=== PATIENT | female | born 1975 | race American Indian/Alaskan Native ===

== ENCOUNTER 2018-04-19 17:55 | Observation (INO) | payer MEDICAID ==
--- NOTE | 2018-04-19 18:17 | ED PDOC ---
Arrival/HPI - General Time Seen by Provider: 04/19/18 18:03 Historian: Patient - History of Present Illness Narrative History of Present Illness (Text): 04/19/18 18:10 42 year old female, with past medical history of diabetes, hypertension and hyperlipidemia, presents to the Emergency department complaining of 1 day history of midsternal chest pain. Patient denies unchanged symptoms with no exacerbation or alleviation since onset. Patient denies associated shortness of breath, cough, neck pain or back pain. 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 Patient was subsequently referred for cardiac cath but was denied by her insurance. Patient denies any fevers, chills, headache, dizziness, dyspnea on exertion, cough, abdominal pain , nausea, vomiting, diarrhea, or any other complaints. Time/Duration: 24 hours Symptom Onset: Gradual Symptom Course: Unchanged Quality: Aching Activities at Onset: Light Context: Home Past Medical History - Provider Review Nursing Documentation Reviewed: Yes - Infectious Disease Hx of Infectious Diseases: None - Tetanus Immunization Tetanus Immunization: Unknown - Cardiac Hx Pacemaker: No - Neurological Hx Paralysis: No - Endocrine/Metabolic Hx Diabetes Mellitus Type 1: Yes - Hematological/Oncological Hx Blood Transfusions: No Hx Blood Transfusion Reaction: No - Musculoskeletal/Rheumatological Hx Musculoskeletal Disorders: No - Gastrointestinal Hx Gastritis: Yes - Psychiatric Hx Substance Use: No - Surgical History Other/Comment: Cardiac stent in 2012 - Anesthesia Hx Anesthesia Reactions: No Hx Malignant Hyperthermia: No - Suicidal Assessment Feels Threatened In Home Enviroment: No Family/Social History - Physician Review Nursing Documentation Reviewed: Yes Family/Social History: No Known Family HX Smoking Status: Never Smoked Hx Alcohol Use: No (SOCIALLY) Hx Substance Use: No Hx Substance Use Treatment: No Allergies/Home Meds Allergies/Adverse Reactions: Allergies EGG Allergy (Intermediate, Verified 01/18/17 20:58) RASH Home Medications: Home Meds Medication Instructions Recorded Confirmed Aspirin [Aspirin Chewable] 81 mg PO DAILY 07/01/16 01/25/17 Cholecalciferol [Vitamin D 1000 IU] 2,000 iu PO DAILY 07/01/16 01/25/17 Insulin Glargine, Recombina 30 unit SC HS 07/01/16 01/25/17 [Lantus] Liraglutide [Victoza 2-Dom] 1.6 mg SQ QAM 07/01/16 01/25/17 Lisinopril [Zestril] 5 mg PO QPM 07/01/16 01/25/17 Lovastatin [Altoprev] 20 mg PO DAILY 07/01/16 01/25/17 Omeprazole 40 mg PO DAILY 07/24/16 01/25/17 Review of Systems - Physician Review All systems were reviewed & negative as marked: Yes - Review of Systems Constitutional: absent: Fevers Respiratory: absent: SOB, Cough Cardiovascular: Chest Pain. absent: HIDALGO Gastrointestinal: absent: Abdominal Pain, Diarrhea, Nausea, Vomiting Musculoskeletal: absent: Back Pain, Neck Pain Neurological: absent: Headache, Dizziness Physical Exam Vital Signs Reviewed: Yes Vital Signs Temp Pulse Resp BP Pulse Ox 04/19/18 17:55 98.4 F 77 18 117/83 96 Temperature: Afebrile Blood Pressure: Normal Pulse: Regular Respiratory Rate: Normal Appearance: Positive for: Well-Appearing, Non-Toxic, Comfortable Pain Distress: None Mental Status: Positive for: Alert and Oriented X 3 - Systems Exam Head: Present: Atraumatic, Normocephalic Pupils: Present: PERRL Extroacular Muscles: Present: EOMI Conjunctiva: Present: Normal Mouth: Present: Moist Mucous Membranes Neck: Present: Normal Range of Motion Respiratory/Chest: Present: Clear to Auscultation, Good Air Exchange. No: Respiratory Distress, Accessory Muscle Use Cardiovascular: Present: Regular Rate and Rhythm, Normal S1, S2. No: Murmurs Abdomen: No: Tenderness, Distention, Peritoneal Signs Back: Present: Normal Inspection Upper Extremity: Present: Normal Inspection. No: Cyanosis, Edema Lower Extremity: Present: Normal Inspection. No: Edema Neurological: Present: GCS=15, CN II-XII Intact, Speech Normal Skin: Present: Warm, Dry, Normal Color. No: Rashes Psychiatric: Present: Alert, Oriented x 3, Normal Insight, Normal Concentration Medical Decision Making ED Course and Treatment: 04/19/18 18:05 Impression: 42 year old female presents to the Emergency department complaining of midsternal chest pain. Plan: -- EKG -- Labs -- Chest X-ray -- Aspirin -- Reassess and disposition Prior Visits: Notes and results from previous visits were reviewed. Progress Notes: 04/19/18 18:05 EKG: Ordered, reviewed, and independently interpreted the EKG. Rate : 73 BPM Rhythm : NSR Interpretation : Sinus rhythm with lvh Comparison : No acute St changes from EKG performed on 11/05/2014. 04/19/18 20:[address] Estevez, covering for Dr. Chaves, who is aware and agrees with Emergency department management plan to admit patient to the hospital to perform stress test in the morning for further evaluation. - Lab Interpretations Lab Results: 04/19/18 19:00 04/19/18 19:00 Lab Results 04/19/18 19:00: Sodium 137, Potassium 4.1, Chloride 99, Carbon Dioxide 28, Anion Gap 14, BUN 10, Creatinine 0.8, Est GFR ( Amer) > 60, Est GFR (Non- Af Amer) > 60, Random Glucose 205 H, Calcium 9.5, Total Bilirubin 0.4, AST 21, ALT 31, Alkaline Phosphatase 56, Total Creatine Kinase 157, Troponin I < 0.01, NT-Pro-B Natriuret Pep < 11.1, Total Protein 7.3, Albumin 4.4, Globulin 2.9, Albumin/Globulin Ratio 1.5 04/19/18 19:00: PT 10.9, INR 0.96, APTT 32.8 04/19/18 19:00: WBC 6.8, RBC 4.60, Hgb 13.3, Hct 38.3, MCV 83.3, MCH 28.9, MCHC 34.7, RDW 12.9, Plt Count 184, MPV 10.2, Gran % 40.0 L, Lymph % (Auto) 53.8 H, Loving % (Auto) 5.0, Eos % (Auto) 1.2 L, Baso % (Auto) 0.0, Gran # 2.73, Lymph # ( Auto) 3.7 H, Loving # (Auto) 0.3, Eos # (Auto) 0.1, Baso # (Auto) 0.00 - RAD Interpretation Radiology Orders: 04/19/18 18:06 CHEST PORTABLE [RAD] Stat - Medication Orders Current Medication Orders: Discontinued Medications Aspirin (Aspirin Chewable) 324 mg PO STAT STA Stop: 04/19/18 18:07 Last Admin: 04/19/18 18:43 Dose: 243 mg Comments: pt took 81 mg this am ok as per ER MD. - Scribe Statement The provider has reviewed the documentation as recorded by the Abhishekibmedina Petty. All medical record entries made by the Umu were at my direction and personally dictated by me. I have reviewed the chart and agree that the record accurately reflects my personal performance of the history, physical exam, medical decision making, and the department course for this patient. I have also personally directed, reviewed, and agree with the discharge instructions and disposition. Disposition/Present on Arrival - Present on Arrival Any Indicators Present on Arrival: No History of DVT/PE: No History of Uncontrolled Diabetes: No Urinary Catheter: No History Surgical Site Infection Following: None - Disposition Have Diagnosis and Disposition been Completed?: Yes Diagnosis: Chest pain Disposition: HOSPITALIZED Disposition Time: 20:05 Patient Plan: Observation Condition: FAIR Discharge Instructions (ExitCare): Chest Pain (ED)
--- NOTE | 2018-04-19 18:45 | RAD ---
Date of service: 04/19/2018 HISTORY: Chest pain. COMPARISON: No prior. FINDINGS: LUNGS: No active pulmonary disease. PLEURA: No significant pleural effusion identified, no pneumothorax apparent. CARDIOVASCULAR: Normal. OSSEOUS STRUCTURES: No significant abnormalities. VISUALIZED UPPER ABDOMEN: Normal. OTHER FINDINGS: None. IMPRESSION: No active disease.
[2018-04-19 19:20] LABS: EOS # 0.1 (0.0-0.7); EOS % 1.2 % (1.5-5.0); GRAN # 2.73 (1.4-6.5); HEMOGLOBIN 13.3 g/dL (12.0-16.0); LYMPH # 3.7 (1.2-3.4); LYMPH % 53.8 % (22.0-35.0); MEAN CELL VOLUME 83.3 fl (80.0-105.0); MEAN CORPUSCULAR HEMOGLOBIN 28.9 pg (25.0-35.0); MEAN CORPUSCULAR HGB CONC 34.7 g/dl (31.0-37.0); MEAN PLATELET VOLUME 10.2 fl (7.0-11.0); MONO # 0.3 (0.1-0.6); RBC 4.6 10^6/uL (3.5-6.1); RED CELL DISTRIBUTION WIDTH 12.9 % (11.5-14.5); WHITE BLOOD COUNT 6.8 10^3/ul (4.5-11.0)
[2018-04-19 19:29] LABS: INR 0.96; PARTIAL THROMBOPLASTIN TIME 32.8 Seconds (25.1-36.5); PROTHROMBIN TIME 10.9 SECONDS (9.4-12.5)
[2018-04-19 19:30] LABS: ALB/GLOB RATIO 1.5 (1.1-1.8); ALBUMIN 4.4 g/dL (3.0-4.8); ALT/SGPT 31 U/L (7-56); AST/SGOT 21 U/L (14-36); BLOOD UREA NITROGEN 10 mg/dL (7-21); CALCIUM 9.5 mg/dL (8.4-10.5); GFR NON-AFRICAN AMERICAN > 60
[2018-04-19 19:41] LABS: TROPONIN I < 0.01 ng/mL
[2018-04-19 19:47] LABS: B-TYPE NATRIURETIC PEPTIDE < 11.1 pg/mL (0-450)
[2018-04-19 20:47] LABS: HDL CHOLESTEROL 43 mg/dL (29-60)
[2018-04-19 20:58] LABS: LDL CHOLESTEROL 92 mg/dL (0-129)
--- NOTE | 2018-04-19 21:06 | CP.PCM.HP ---
History of Present Illness - History of Present Illness History of Present Illness: Khang Dominguez DO PGy-1, H&P for hospitalist CC: chest pain This is a 42 year old AA female with PMH of IDDM, HTN, dyslipidemia who presents to the ED with complaints of intermittent chest pain for the past day. Pt describes the pain as a sharp, midsternal, 8/10 chest pain that lasts a few seconds, coming and going without inciting or alleviating factors, non- radiating. She also reports intermittent shortness of breath, which lasts a few seconds and comes on with the chest pain, and goes away with the chest pain. She does not have SOB with every episode of chest pain. Pt reports one frontal headache at 1 pm today which lasted two hours, went away after taking Tylenol, was nonradiating. She denies visual complaints, paresthesias, weakness, fever, chills, abdominal pain, n/v/d, gerd symptoms, trauma, hormonal therapy, clots in the past, recent travel or prolonged immobility. Pt was seen and evaluated in the ED. Pt is resting comfortably, and does not endorse chest pain on arrival to the ED or at this time. A 12-point ROS was reviewed and is otherwise unremarkable. 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 SPECT stress test (11/2016) which was normal; fixed anterior wall defect due to breast attenuation. PSH: Tubal ligation 11 years ago, left foot bunionectomy, tonsillectomy at age 35 due to sleep apnea FHx: Mother (alive) with DM2, hypercholesterolemia, no history of CAD. Father ( alive) no medical problems. 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 Denies smoking history. Etoh socially. Denies history illicit drug use. Meds: Lovastatin 40 mg PO QD, ASA 81 mg QHS, Lisinopril 5 mg PO QD, Lantus 35 mg QHS, Vitamin D D QD, Victoza 1.6 mg SQ QAM Fish: NKDA, Eggs Present on Admission - Present on Admission Any Indicators Present on Admission: No Review of Systems - Review of Systems All systems: reviewed and no additional remarkable complaints except (as per HPI ) Past Patient History - Infectious Disease Hx of Infectious Diseases: None - Tetanus Immunizations Tetanus Immunization: Unknown - Past Social History Smoking Status: Never Smoked - CARDIAC Hx Pacemaker: No - NEUROLOGICAL Hx Paralysis: No - ENDOCRINE/METABOLIC Hx Diabetes Mellitus Type 1: Yes - HEMATOLOGICAL/ONCOLOGICAL Hx Blood Transfusions: No Hx Blood Transfusion Reaction: No - MUSCULOSKELETAL/RHEUMATOLOGICAL Hx Musculoskeletal Disorders: No - GASTROINTESTINAL Hx Gastritis: Yes - PSYCHIATRIC Hx Substance Use: No - SURGICAL HISTORY Other/Comment: Cardiac stent in 2012 - ANESTHESIA Hx Anesthesia Reactions: No Hx Malignant Hyperthermia: No Meds Allergies/Adverse Reactions: Allergies Allergy/AdvReac Type Severity Reaction Status Date / Time EGG Allergy Intermediate RASH Verified 01/18/17 20:58 Physical Exam - Constitutional Appears: Well, No Acute Distress - Head Exam Head Exam: ATRAUMATIC, NORMAL INSPECTION, NORMOCEPHALIC - Eye Exam Eye Exam: Conjunctival injection (in the left eye), EOMI, Normal appearance, PERRL - ENT Exam ENT Exam: Mucous Membranes Moist - Neck Exam Neck exam: Positive for: Normal Inspection Additional comments: (-) JVD - Respiratory Exam Respiratory Exam: Clear to Auscultation Bilateral, NORMAL BREATHING PATTERN. absent: Rhonchi, Wheezes, Respiratory Distress - Cardiovascular Exam Cardiovascular Exam: REGULAR RHYTHM, +S1, +S2. absent: Diastolic murmur, Systolic Murmur Additional comments: 2+ radial pulses bilaterally - GI/Abdominal Exam GI & Abdominal Exam: Normal Bowel Sounds, Soft. absent: Mass, Organomegaly, Pulsatile Mass, Tenderness - Extremities Exam Extremities exam: Positive for: normal inspection, pedal edema, pedal pulses present (3+) - Back Exam Back exam: NORMAL INSPECTION - Neurological Exam Neurological exam: Alert, Oriented x3 - Psychiatric Exam Psychiatric exam: Normal Affect, Normal Mood - Skin Skin Exam: Dry, Normal Color, Warm Results - Vital Signs Recent Vital Signs: Last Vital Signs Temp 98.4 F 04/19/18 20:29 Pulse 81 04/19/18 20:29 Resp 18 04/19/18 20:29 BP 131/74 04/19/18 20:29 Pulse Ox 100 04/19/18 20:29 - Labs Result Diagrams: 04/19/18 19:00 04/19/18 19:00 Assessment & Plan - Assessment and Plan (Free Text) Assessment: This is a 42 year old AA female with PMH of IDDM, HTN, dyslipidemia who presents to the ED with complaints of intermittent chest pain for the past day, associated with SOB at time. In the ED, pt received ASA 325 mg PO. EKG shows NSR at 73, no acute STTW changes; as read by me. CXR read as NAD. Troponin was negative x1. Plan: Atypical chest pain in a diabetic female, r/o ACS - Echo (2014) shows normal chamber size, EF 55-60%, Trace AR/PI, Trace to mild MR/TR RVSP-30 mmHg. - initial troponin is <0.01, trend x2 Q6H - EKG shows NSR at 73, no STTW changes - CXR is read as NAD - ASA 81 mg PO QD - Of note, pt was had episode of CP as described in HPI prior to being moved to the floor. Repeat EKG is NSR no acute STTW changes. - Given cardiac cath (2011) which notes normal coronaries/LVEDP possible vasospastic cause of CP, will give 1 dose of Amlodipine 5 mg PO now - cardiology consulted, recs appreciated Diabetes, insulin-dependant - f/u Hgb A1c - accucheck ACHS - levemir 15 units ACBHS - continue home victoza at 1.6 mg SC QAM Hypertension - lisinopril 5 mg PO QD Dyslipidemia -f/u lipid panel -Atorvastatin 10 mg PO QHS History Vitamin D Deficiency - Vitamin D 2,000 IU PO QD - f/u vitamin D 25 OH PPX/diet - Protonix for GI ppx, SCDs for DVT ppx, pt is ambulatory - HHD, NPO past midnight Case was reviewed and discussed with attending physician, Dr. Chaitanya Hargrove
[2018-04-19] MEDS: Insulin Detemir 100 units/ml Vial (Levemir) SC SCH (23:00)
[2018-04-20] MEDS ORDERED: Dextrose 50% SYRINGE Inj (50 ml) IV PRN (02:53)
[2018-04-20] MEDS ORDERED: Insulin Lispro (humaLOG) LOW Coverage SC SCH (03:00)
[2018-04-20 05:01] VITALS: BMI 19.5
[2018-04-20 05:46] VITALS: O2SAT 100
[2018-04-20] MEDS: Insulin Detemir 100 units/ml Vial (Levemir) SC SCH (07:32)
[2018-04-20] MEDS: Insulin Lispro (humaLOG) LOW Coverage SC SCH ×3 (07:32→20:19)
[2018-04-20] MEDS ORDERED: LIRAGLUTIDE 1.6 MG SQ SCH (10:00)
[2018-04-20] MEDS ORDERED: Cholecalciferol 1,000 INTLU TAB PO SCH (10:00)
[2018-04-20 10:23] LABS: BASO # 0.01 K/mm3 (0.0-2.0); BASO % 0.2 % (0.0-3.0); EOS # 0.1 (0.0-0.7); EOS % 1.3 % (1.5-5.0); GRAN # 2.17 (1.4-6.5); GRAN % 40.3 % (50.0-68.0); HEMOGLOBIN 13.5 g/dL (12.0-16.0); LYMPH # 2.8 (1.2-3.4); LYMPH % 52.4 % (22.0-35.0); MEAN CELL VOLUME 84.1 fl (80.0-105.0); MEAN CORPUSCULAR HEMOGLOBIN 29.1 pg (25.0-35.0); MEAN CORPUSCULAR HGB CONC 34.6 g/dl (31.0-37.0); MEAN PLATELET VOLUME 10.5 fl (7.0-11.0); MONO # 0.3 (0.1-0.6); MONO % 5.8 % (1.0-6.0); RBC 4.64 10^6/uL (3.5-6.1); RED CELL DISTRIBUTION WIDTH 12.9 % (11.5-14.5); WHITE BLOOD COUNT 5.4 10^3/ul (4.5-11.0)
[2018-04-20 10:56] LABS: ALB/GLOB RATIO 1.3 (1.1-1.8); ALT/SGPT 27 U/L (7-56); AST/SGOT 29 U/L (14-36); BLOOD UREA NITROGEN 10 mg/dL (7-21); CALCIUM 9.1 mg/dL (8.4-10.5); GFR NON-AFRICAN AMERICAN > 60
[2018-04-20] MEDS ORDERED: Lidocaine PF 2% (5 ml) Inj (For Cardiac Arrhy) ONE (13:37)
[2018-04-20] MEDS ORDERED: Iohexol 350mgl/ml 50 ML ONE (13:38)
[2018-04-20] MEDS ORDERED: Iodixanol 320 MG/ML 200 ML BOTTLE IV ONE (13:38)
[2018-04-20] MEDS ORDERED: Iodixanol 320 MG/ML 100 ML BOTTLE IV ONE (13:38)
[2018-04-20] MEDS ORDERED: Nitroglycerin 50mg in D5W 0 MG/0 ML BOTTLE IV ONE (13:39)
--- NOTE | 2018-04-20 13:49 | CP.PCM.PN ---
Subjective - Date & Time of Evaluation Date of Evaluation: 04/20/18 Time of Evaluation: 06:14 - Subjective Subjective: Enrique Klein DO PGY-1, Internal Medicine Resident. Hospitalist Progress Note Objective - Vital Signs/Intake and Output Vital Signs (last 24 hours): Temp Pulse Resp BP Pulse Ox 98.7 F 78 18 135/86 100 04/20/18 12:00 04/20/18 12:00 04/20/18 12:00 04/20/18 12:00 04/20/18 05:46 Intake and Output: 04/20/18 04/20/18 06:59 18:59 Intake Total 240 Balance 240 - Medications Medications: Current Medications Aspirin (Aspirin Chewable) 81 mg PO DAILY [facility] Last Admin: 04/20/18 11:24 Dose: 81 mg Atorvastatin Calcium (Lipitor) 10 mg PO DIN TONY Cholecalciferol (Vitamin D) 2,000 intlu PO DAILY [facility] Last Admin: 04/20/18 11:25 Dose: 2,000 intlu Dextrose (Dextrose 50% Inj) 0 ml IV STAT PRN; Protocol PRN Reason: Hypoglycemia Protocol Dextrose (Dextrose 5% In Water 1000 Ml) 1,000 mls @ 0 mls/hr IV .Q0M PRN; Protocol; Per Protocol PRN Reason: Hypoglycemia Protocol Insulin Detemir (Levemir) 15 unit SC ACBHS [facility] Last Admin: 04/20/18 07:32 Dose: Not Given Insulin Human Lispro (Humalog Low) 0 units SC Q6H [facility] PRN Reason: Protocol Last Admin: 04/20/18 12:21 Dose: 4 unit Lisinopril (Zestril) 5 mg PO QPM [facility] Non-Formulary Medication (Liraglutide [Victoza 2-Dom]) 1.6 mg SQ QAM [facility] Last Admin: 04/20/18 11:25 Dose: Not Given - Labs Labs: 04/20/18 10:19 04/20/18 10:19 PT 10.9 SECONDS (9.4-12.5) 04/19/18 19:00 INR 0.96 04/19/18 19:00 APTT 32.8 Seconds (25.1-36.5) 04/19/18 19:00 Assessment and Plan - Assessment and Plan (Free Text) Assessment: 42 y/o female with PMH of IDDM, HTN, dyslipidemia who presents to the ED with chest pain, SOB x1 day . EKG shows NSR at 73, no acute changes, CXR no acute finding. Troponin negative x1. ASA 325 given. 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 f/u results DM- type 1 - Not controlled - levemir 15 units - continue home victoza at 1.6 mg SC QAM - Hgb A1c 8.7 - accucheck ACHS - ISS- low Hypertension - lisinopril 5 mg PO QD Dyslipidemia -lipid panel CHOL 163, TG 147, LDL 92 -continue Atorvastatin Vitamin D Deficiency - continue Vitamin D 2000 Prophylaxis - Protonix for GI ppx - SCDs for DVT ppx -Heat healthy diet Case reviewed and discussed with attending Dr Higgins
[2018-04-20] MEDS ORDERED: Verapamil 2 ML ONE (14:35)
[2018-04-20] MEDS ORDERED: Midazolam 2 MG/2 ML VIAL ONE ×2 (15:00→15:15)
[2018-04-20] MEDS ORDERED: Phenylephrine 10 mg/ml Inj ONE (15:12)
[2018-04-20] MEDS ORDERED: Bacitracin 500 Units/gm Oint Foilpak UD TOP ONE (15:39)
[2018-04-20] MEDS ORDERED: Sodium Chloride 0.9% 1,000 ML IV SCH (15:45)
--- NOTE | 2018-04-20 16:20 | CARD ---
APPROVED REPORT Date of service: 04/20/2018 Protocol: MARLO Test Type: Sestamibi Stress Test Attending Physician: Dr. David Estevez Referring Physician: Dr. Adrian Lux Test Indications: Chest Pain Height:5 ft 0 in Weight:161lbs Medications: Levemir, Humulog,Lisinipril, Amlodipine, Aspirin, Atorvastatin, Vit. D. Medical History: 42 y/o female. Hx of diabetes, hypertension,high cholesterol. Target HR: 178 bpm Resting ECG: normal Resting Heart Rate: 92 bpm Resting Blood Pressure: 100/80mmHg Submaximum (85%): 151 bpm POST EXERCISE Reason for Termination: Fatigue Target HR: No Max HR: 155 bpm 88% of Maximum Predicted HR: 178 bpm Exercise duration: 08:30 min:sec, 3 Stage Exercise capacity: 10.1METs Max Blood Pressure: 130/80mmHg Blood Pressure response to exercise: normal resting BP - appropriate response Heart Rate response to exercise: appropriate Chest Pain: Yes, sharp like needele in chest Angina index: 0 Arrhythmia: No, none ST Change: Yes, Depression downsloping 1/2 to 1 mm in II,III, Avf and V5-6 Deviation: 0 mm TEST SUMMARY [id number]/.0. [id number]/80.0. PRETESTHYPERV.00:[id number]/80.0. PRETESTWARM-UP04:[id number]/.0. EXERCISESTAGE 103:[id number]/80.0. EXERCISESTAGE 203:[id number]/80.0. EXERCISESTAGE 302:[id number]/80.0. [id number]/80.0. INTERPRETATION Stress EKG Conclusion: Borderline positive for Ischemia, sharp pain in chest like needle, Nuclear scan to follow. Signed by David Estevez Electronically Approved: 04/20/2018 09:15:38 EXAM: Myocardial Perfusion STRESS/REST Stress Test Type: Exercise Treadmill Imaging Protocol Rest Spect myocardial perfusion imaging was performed in supine position 60 minutes following the injection of 30.2 mCi of Tc-99 Myoview. At peak stress, the patient was injected intravenously with 10.9mCi of Tc-99 tetrofosmin after an exercise time of 8 minutes and 30 seconds. Gated Stress Spect was performed 65 minutes after intravenous Tc-99 Myoview injection. The images were gated to evaluate regional wall motion and calculate ventricular ejection fraction.Images were reconstructed using backfilter projection method in short horizontal and verticle long axis. Spect slices were generated. LV Perfusion The quality of the study is good. The left ventricle is normal in size. The right ventricle is unremarkable. The lung uptake is within normal limits. The distribution of tracer reveals a small area of mildly to moderately decreased perfusion in the distal anteroseptal /apical anna on the stress study. The remainder of the LV myocardium is unremarkable. The rest myocardial perfusion study shows improvement of the defect. Wall Motion Wall motion study shows good contractility of the left ventricle. LVEF = 71%. Conclusion 1. Probably bnormal SPECT myocardial perfusion study. 2. Reversible, snakkm distal anteroseptal / apical defects suspicious of ischemia. However, the effect of changing breast position cannot be excluded. 3. Normal gated wall motion of the left ventricle. 4. In comparison with the last study of 11/28/2016, the changes appear new.
--- NOTE | 2018-04-20 17:36 | CPOSTOP ---
DATE: 04/20/2018 CARDIOVASCULAR LAB POSTPROCEDURE NOTE DICTATING PHYSICIAN: David Estevez MD. PROFESSIONAL SOCCER PLAYER: Jeferson Bashir, geothermal field technician. TYPE OF ANESTHESIA: Moderate conscious sedation. TOTAL DOSE GIVEN: 2 mg of Versed, 100 mcg of fentanyl given. PRE-PROCEDURE DIAGNOSES: Unstable angina, acute coronary syndrome, abnormal stress test. PROCEDURE PERFORMED: Left heart catheterization, left radial approach. FINDINGS: Essentially normal coronaries. FINAL DIAGNOSIS: Normal coronaries. POST-PROCEDURE CONDITION: Stable. CLOSURE DEVICE: TR band. VASCULAR ACCESS SITE: Left radial artery. TOTAL RADIATION DOSE: 2088.9 milligray unit. TOTAL FLUOROSCOPY TIME: 1.4 minutes. Dvaid Estevez MD
--- NOTE | 2018-04-20 17:40 | CARD ---
APPROVED REPORT Date of service: 04/19/2018 EKG Measurement Heart [id number] [id number] <Conclusion> Normal sinus rhythm Normal ECG
--- NOTE | 2018-04-20 17:41 | CARD ---
APPROVED REPORT Date of service: 04/19/2018 EKG Measurement Heart [id number] <Conclusion> Normal sinus rhythm Minimal voltage criteria for LVH, may be normal variant Nonspecific ST and T wave abnormality Abnormal ECG
[2018-04-20 18:38] VITALS: RESP 21; TEMP 98.9
--- NOTE | 2018-04-20 19:02 | CARD ---
APPROVED REPORT Date of service: 04/20/2018 EXAM: Two-dimensional and M-mode echocardiogram with Doppler and color Doppler. INDICATION Chest Pain 2D DIMENSIONS Left Atrium (2D)3.8 (1.6-4.0cm)IVSd1.0 (0.7-1.1cm) LVDd3.8 (3.9-5.9cm)PWd1.0 (0.7-1.1cm) LVDs2.4 (2.5-4.0cm)FS (%) 36.1 % LVEF (%)66.5 (>50%) M-Mode DIMENSIONS Aortic Root2.40 (2.2-3.7cm)Aortic Cusp Exc.1.50 (1.5-2.0cm) Aortic Valve AoV Peak Hmwcoapm759.0cm/Rehan Peak GR.5mmHg Mitral Valve E/A ratio0.0 TDI E/Lateral E'0.0E/Medial E'0.0 Tricuspid Valve TR Peak [id number]/sRAP [id number] Peak Gr.8mmHg [id number] LEFT VENTRICLE The left ventricle is normal size. There is normal left ventricular wall thickness. The left ventricular function is normal. The left ventricular ejection fraction is within the normal range. There is normal LV segmental wall motion. The left ventricular diastolic function is normal. No left ventricle thrombus noted on this study. There is no ventricular septal defect visualized. There is no left ventricular aneurysm. There is no mass noted in the left ventricle. RIGHT VENTRICLE The right ventricle is normal size. There is normal right ventricular wall thickness. The right ventricular systolic function is normal. ATRIA The left atrium size is normal. The right atrium size is normal. The interatrial septum is intact with no evidence for an atrial septal defect. AORTIC VALVE The aortic valve is thickened but opens well. No aortic regurgitation is present. There is no aortic valvular stenosis. There is no aortic valvular vegetation. MITRAL VALVE The mitral valve is thickened but opens well. Mitral regurgitation is trace. There is no mitral valve stenosis. There is no evidence of mitral valve prolapse. TRICUSPID VALVE The tricuspid valve leaflets are thickened , but open well. There is trace tricuspid regurgitation. There is no tricuspid valve stenosis. There is no tricuspid valve prolapse or vegetation. PULMONIC VALVE The pulmonary valve is normal in structure. There is no pulmonic valvular stenosis. GREAT VESSELS The aortic root is normal in size. The ascending aorta is normal in size. The pulmonary artery is normal. The IVC is normal in size and collapses >50% with inspiration. PERICARDIAL EFFUSION There is no pleural effusion. There is no pericardial effusion. <Conclusion> Normal Chamber size.EF-65%. TracebMR/TR RVSP-18 mmof hg.
--- NOTE | 2018-04-20 19:19 | CP.PCM.DIS ---
Provider - Provider Date of Admission: 04/19/18 20:06 Attending physician: Danielle Higgins MD Consults: cardiology Time Spent in preparation of Discharge (in minutes): 45 Hospital Course - Lab Results Lab Results: Most Recent Lab Values WBC 5.4 10^3/ul (4.5-11.0) D 04/20/18 10:19 RBC 4.64 10^6/uL (3.5-6.1) 04/20/18 10:19 Hgb 13.5 g/dL (12.0-16.0) 04/20/18 10:19 Hct 39.0 % (36.0-48.0) 04/20/18 10:19 MCV 84.1 fl (80.0-105.0) 04/20/18 10:19 MCH 29.1 pg (25.0-35.0) 04/20/18 10:19 MCHC 34.6 g/dl (31.0-37.0) 04/20/18 10:19 RDW 12.9 % (11.5-14.5) 04/20/18 10:19 Plt Count 176 10^3/uL (120.0-450.0) 04/20/18 10:19 MPV 10.5 fl (7.0-11.0) 04/20/18 10:19 Gran % 40.3 % (50.0-68.0) L 04/20/18 10:19 Lymph % (Auto) 52.4 % (22.0-35.0) H 04/20/18 10:19 [place] % (Auto) 5.8 % (1.0-6.0) 04/20/18 10:19 Eos % (Auto) 1.3 % (1.5-5.0) L 04/20/18 10:19 Baso % (Auto) 0.2 % (0.0-3.0) 04/20/18 10:19 Gran # 2.17 (1.4-6.5) 04/20/18 10:19 Lymph # (Auto) 2.8 (1.2-3.4) 04/20/18 10:19 [place] # (Auto) 0.3 (0.1-0.6) 04/20/18 10:19 Eos # (Auto) 0.1 (0.0-0.7) 04/20/18 10:19 Baso # (Auto) 0.01 K/mm3 (0.0-2.0) 04/20/18 10:19 PT 10.9 SECONDS (9.4-12.5) 04/19/18 19:00 INR 0.96 04/19/18 19:00 APTT 32.8 Seconds (25.1-36.5) 04/19/18 19:00 Sodium 136 mmol/L (132-148) 04/20/18 10:19 Potassium 4.1 mmol/L (3.6-5.0) 04/20/18 10:19 Chloride 102 mmol/L (98-107) 04/20/18 10:19 Carbon Dioxide 25 mmol/L (21-33) 04/20/18 10:19 Anion Gap 14 (10-20) 04/20/18 10:19 BUN 10 mg/dL (7-21) 04/20/18 10:19 Creatinine 0.8 mg/dl (0.7-1.2) 04/20/18 10:19 Est GFR ( Amer) > 60 04/20/18 10:19 Est GFR (Non-Af Amer) > 60 04/20/18 10:19 POC Glucose (mg/dL) 339 mg/dL (65-110) H 04/20/18 11:34 Random Glucose 185 mg/dL (70-110) H 04/20/18 10:19 Hemoglobin A1c 8.7 % (4.2-6.5) H 04/19/18 19:00 Calcium 9.1 mg/dL (8.4-10.5) 04/20/18 10:19 Phosphorus 3.5 mg/dL (2.5-4.5) 04/20/18 10:19 Magnesium 1.9 mg/dL (1.7-2.2) 04/20/18 10:19 Total Bilirubin 0.4 mg/dL (0.2-1.3) 04/20/18 10:19 AST 29 U/L (14-36) 04/20/18 10:19 ALT 27 U/L (7-56) 04/20/18 10:19 Alkaline Phosphatase 58 U/L (38-126) 04/20/18 10:19 Total Creatine Kinase 157 U/L (35-230) 04/19/18 19:00 Troponin I < 0.01 ng/mL 04/20/18 07:00 NT-Pro-B Natriuret Pep < 11.1 pg/mL (0-450) 04/19/18 19:00 Total Protein 7.2 g/dL (5.8-8.3) 04/20/18 10:19 Albumin 4.0 g/dL (3.0-4.8) 04/20/18 10:19 Globulin 3.2 gm/dL 04/20/18 10:19 Albumin/Globulin Ratio 1.3 (1.1-1.8) 04/20/18 10:19 Triglycerides 147 mg/dL (35-160) 04/19/18 19:00 Cholesterol 163 mg/dL (130-200) 04/19/18 19:00 LDL Cholesterol Direct 92 mg/dL (0-129) 04/19/18 19:00 HDL Cholesterol 43 mg/dL (29-60) 04/19/18 19:00 25-OH Vitamin D Total 45.8 NG/ML (30.0-100.0) 04/20/18 07:00 TSH 3rd Generation 2.35 mIU/mL (0.46-4.68) 04/19/18 19:00 - Hospital Course Hospital Course: Hospital course: 42 year old AA female with PMH of IDDM, HTN, dyslipidemia who presents to the ED with complaints of intermittent chest pain for the past day, associated with SOB at time. Patient admitted to rule out ACS given that she had cardiac cath ( 2011) which noted normal coronaries/LVEDP and possible vasospastic cause of chest pain. She received ASA 325 mg PO. EKG shows NSR at 73, no acute ST-TW changes. CXR read as NAD. Serial Troponin was negative. Patient went for cardiac stress test during which she developed chest pain and was rushed to [facility]. No stents placed and the etiology was likely related to vacular spasm in the coronary arteries as per cardiology Dr Estevez. Patient was under observation after the cath procedure, no complications, surgical site clean and no signs of infections noted. Patient was medically optimized for discharge. On discharge: -Please follow up with your PMD within one week of discharge -Please resume your home meds as prescribed -please start taking Metoprolol 12.5mg twice daily -Please follow up with your construction trades contractor Dr Oliver within 2-3 weeks of discharge -Please go to the nearest emergency department if symptoms reoccur Discharge Exam - Head Exam Head Exam: ATRAUMATIC, NORMAL INSPECTION, NORMOCEPHALIC - Eye Exam Eye Exam: Normal appearance Pupil Exam: NORMAL ACCOMODATION - ENT Exam ENT Exam: Mucous Membranes Moist, Normal Exam - Neck Exam Neck exam: Full Rom, Normal Inspection - Respiratory Exam Respiratory Exam: Clear to PA & Lateral, NORMAL BREATHING PATTERN - Cardiovascular Exam Cardiovascular Exam: REGULAR RHYTHM, +S1, +S2 - GI/Abdominal Exam GI & Abdominal Exam: Normal Bowel Sounds, Soft - Rectal Exam Rectal Exam: NORMAL INSPECTION - Extremities Exam Extremities exam: normal capillary refill, pedal pulses present - Back Exam Back exam: FULL ROM - Neurological Exam Neurological exam: Alert, CN II-XII Intact, Normal Gait, Oriented x3, Reflexes Normal - Psychiatric Exam Psychiatric exam: Normal Affect, Normal Mood - Skin Skin Exam: Dry, Intact, Normal Color, Warm Discharge Plan - Discharge Medications Prescriptions: Metoprolol Succinate XL [Toprol XL] 12.5 mg PO BID #60 tab - Follow Up Plan Condition: FAIR Disposition: HOME/ ROUTINE Instructions: Coronary Heart Disease, Chest Pain Additional Instructions: -Please follow up with your PMD within one week of discharge -Please resume your home meds as prescribed -please start taking Metoprolol 12.5mg twice daily -Please follow up with your construction trades contractor Dr Oliver within 2-3 weeks of discharge -Please go to the nearest emergency department if symptoms reoccur
--- NOTE | 2018-04-20 19:42 | CARD ---
APPROVED REPORT Date of service: 04/20/2018 Procedure(s) performed: Left Heart Catheterization HISTORY The patient is a 42 year-old female with a history of : most recent EF: 72%. (EF Method: RADIONUCLIDE), diabetes mellitus with insulin treatment , previous diagnostic cath, previous PCI (The PCI date was 08/07/2012), hypertension , dyslipidemia , Admitted with Chest pain, during stress test developed Chest pain, nausea and Borderline Stress component positive for Ischemia.. INDICATION The indication(s) include : positive stress test, unstable angina . CASE TECHNIQUE The patient was brought urgently to the Cardiac Catheterization Laboratory in a fasting state and was prepped and draped in a sterile manner. The right femoral groin was infiltrated with 2% Lidocaine subcutaneous anesthesia. A 6FR GLIDESHEATH ACCESS KIT sheath was inserted into the right femoral artery without difficulty. Coronary angiography was performed using coronary diagnostic catheters. The left coronary system was accessed and visualized with a Diagnostic , 6F JL4 CATH DXT 100 CM catheter. The right coronary system was accessed and visualized with a Diagnostic ,6F JR 4 CATH DXT 100 CM catheter. The left ventricle was accessed and visualized with a 6F PIGTAIL 145 CATH DXT 110 CM catheter. Left ventricular/Aortic Valve gradient assessed on pullback. Left ventriculogram was performed in MAXWELL projection. Closure device was deployed with a Fr TR Band (Regular) without any complications. The patient tolerated the procedure well and there were no complications associated with the procedure. Vessel Analysis The patient's coronary anatomy is right dominant. The left main coronary artery is a medium size vessel . The left main bifurcates to the left anterior descending and circumflex. The left anterior descending artery is a medium size vessel with diffuse calcification noted throughout this vessel and without significant stenosis. There is a 55% stenosis in the very distal segment near apex and diffusely diseased ,but no focal flow limiting stenosis. The first diagonal branch is a medium size vessel with diffuse calcification noted throughout this vessel and without significant stenosis. The second diagonal branch is a large size vessel with diffuse calcification noted throughout this vessel and without significant stenosis. The third diagonal branch is a small size vessel with diffuse calcification noted throughout this vessel and without significant stenosis. The circumflex artery is a small size vessel with diffuse calcification noted throughout this vessel and without significant stenosis. The first obtuse marginal branch is a small size vessel with diffuse calcification noted throughout this vessel and without significant stenosis. The right coronary artery is a large size vessel with intimal irregularities and without significant stenosis. The right posterior descending artery is a large size vessel without significant stenosis. The right posterolateral branch is a large size vessel with intimal irregularities and without significant stenosis. Left Ventricle The left ventricle is normal in size with normal contractility. There was no cardiomyopathy. The left ventricular ejection fraction is estimated to be 65%. The left ventricular end diastolic pressure is 6-8 mmHg. There was no gradient across the aortic valve upon pullback. Conclusion Non- obstructive CAD limited to Very Distal near apex, diffusely diseased 55%, but no focal dlow limiting stenosis Preserved LV Fx. EF-655, EDP-6-8 mmof Hg. Recommendations Aggressive Medical TherapyCardiac Risk Reduction Program CC; drs. Alarcon/ Andie.
[2018-04-20] MEDS ORDERED: Bacitracin 500 Units/gm Oint Foilpak UD ONE (19:45)
--- NOTE | 2018-04-20 20:09 | CON ---
DATE: 04/20/2018 CARDIOLOGY CONSULTATION REASON FOR CONSULTATION: Chest pain, cardiac evaluation. BRIEF CLINICAL HISTORY: This is a 42-year-old -[place] female with past medical history of diabetes since at the age of 9, type 1 diabetes; hypertension; hyperlipidemia, complaining of chest pain off and on since three days, like sharp, somebody putting a knife in the chest. Denies any shortness of breath or palpitation now. PAST MEDICAL HISTORY: Significant for diabetes, hypertension, hyperlipidemia. Diabetes started at the age of 9. History of cardiac catheterization twice, in 2011 at [facility] followed by at the [facility] with normal coronaries. Last stress test 11/2016, normal stress test. PREVIOUS CARDIAC WORKUP: Cardiac catheterization twice in 2013 at [facility]; 2011 at [facility]. Last stress test in 11/2106, essentially normal myocardial perfusion study. PAST SURGICAL HISTORY: Significant for tubal ligation 11 years ago, bunionectomy on the left foot, and tonsillectomy 30 years ago. FAMILY HISTORY: Significant for type 2 diabetes in mother. No history of significant coronary artery disease. SOCIAL HISTORY: Denies any smoking. Drinks socially and a glass of wine every once or twice a week. CURRENT MEDICATIONS: The patient is taking Zestril 5 mg daily, Victoza, insulin 30 units subcu in the morning, and aspirin. ALLERGIES: ALLERGY TO EGG. REVIEW OF SYSTEMS: As per HPI. PHYSICAL EXAMINATION: VITAL SIGNS: Height of the patient 5 feet 9 inches. Weight of the patient 132 pounds. Body mass index 20 kg/m2. Rest of the vitals; temperature afebrile, heart rate 81, blood pressure 113/56. HEENT: PERRLA. Extraocular muscles intact. NECK: Supple. No carotid bruits or thyromegaly. CHEST: Clear to auscultation. HEART: S1 and S2 regular. ABDOMEN: Soft. EXTREMITIES: Clubbing and cyanosis negative. LABORATORY DATA: Blood workup as follows: WBC 6.8, hemoglobin 13.3, hematocrit 38.3, platelet count 184. Chemistry shows sodium 137, potassium 4, chloride 99, carbon dioxide 20, anion gap of 14, BUN 1, and creatinine 0.8. Troponin x2 negative. EKG shows normal sinus rhythm, no acute ST-T changes noted. IMPRESSION: A 42-year-old female with past medical history significant for type 1 diabetes since more than 30 years ago, admitted with chest pain, though is atypical. Given the multiple risk factors of coronary artery disease including diabetes, suggest echo, a stress test, lipid profile, TSH, and hemoglobin A1c. Further recommendations depending upon the hospital course. We will follow with you. Thank you, Dr. Higgins, for proving us the opportunity in taking care of the patient, Sandra Britton. David Estevez MD
[2018-04-20 20:33] VITALS: BP 146/82; PULSE 81
--- NOTE | 2018-04-20 20:40 | PN ---
DATE: 04/20/2018 SUBJECTIVE: The patient underwent a stress test. The patient walked on the treadmill for more than 6 minutes, but the patient developed sharp chest pain, like somebody is putting a pin all over in her chest and also became nauseous and T inversion in II, III, aVF, in V5, and V6 with [address] depression and then later on the patient in the recovery area became nauseous and felt chest pain. In view of above positive abnormal stress test, the patient is scheduled for cardiac catheterization this afternoon. Further recommendations after cardiac catheterization. We will load her with aspirin and Plavix, though we will get the nuclear scan and follow the result, but we will proceed for cardiac catheterization. David Estevez MD
== END 2018-04-20 21:36 | disposition home or self-care (01) ==
LOC: ED 17:55 → ERH 20:06 → 2RNO 22:56 → 2RSO 04-20 16:27
PROVIDERS: ADMIT Hospitalist; ATTEND Internal Medicine
DX: I25.110 Atherosclerotic heart disease of native coronary artery with unstable angina pectoris (principal); E10.9 Type 1 diabetes mellitus without complications; I10 Essential (primary) hypertension; E78.5 Hyperlipidemia, unspecified; Z79.4 Long term (current) use of insulin; Z95.5 Presence of coronary angioplasty implant and graft
CPT/HCPCS: 36415; 71045; 78452; 80053; 80061; 82306; 82550; 82948; 83036; 83735; 83880; 84100; 84443; 84484; 85025; 85610; 85730; 93005; 93017; 93306; 93458; 99152; 99285; A9502; G0378; J1644; J2250; J3010; J7040; Q9966; Q9967

== ENCOUNTER 2018-09-29 07:44 | Outpatient (CLI) | payer MEDICAID | END 2018-09-29 07:45 | disposition home or self-care (01) | LOC: RAD 07:44 ==

== ENCOUNTER 2018-11-24 07:45 | Outpatient (CLI) | payer MEDICAID | END 2018-11-24 07:46 | disposition home or self-care (01) | LOC: RAD 07:45 ==